=== PATIENT | male | born 1995 | race Asian ===

== ENCOUNTER 2017-06-07 21:55 | Emergency (ER) | payer SELFPAY ==
[~2017-06-07] VITALS: Ht 185.4 cm; Wt 75.0 kg
[2017-06-07 22:00] VITALS: BP 123/81; PULSE 77; RESP 16; O2SAT 98
--- NOTE | 2017-06-07 23:04 | ED.REPORT ---
HPI-Abd Pain M Under 40 Date of Service Jun 07, 2017 ED Provider: Darion Barber DO Pt is an otherwise healthy 22 year old male who presents to the ED with his mother complaining of intermittent abdominal pain onset 2 years ago. Today the pain returned and has now settled down to his right lower quadrant. He c/o associated intermittent chills. Pt reports that his pain radiates into his groin. He denies vomiting, diarrhea, constipation, discharge, fever, and weight loss. " Nursing Notes Stated Complaint: ABD PAIN Chief Complaint: Male Abdominal Pain Nursing Notes Reviewed: Yes Allergies: Coded Allergies: No Known Allergies (Unverified , 06/07/17) General Time Seen by MD: 23:03 Chief Complaint Abdominal pain Hx Obtained From: Patient Arrived By: Walk-in Sudden in Onset?: No Onset Occurred: More than a week ago... (>6 months) Symptom Duration: Intermittent Location: : Diffuse Quality: Painful Radiation: : Pelvis Severity: Current: Moderate Severity: Maximum: Moderate Recent Healthcare: No recent doctor visit, No recent hospitalization Similar Sx Previous: Yes Past Medical History Past Medical History None reported Past Surgical History None reported Smoking History Unknown if Ever Smoker Social History Other Social History: Good social support Ambulatory Status Independent Review of Systems Constitutional: Reports: Chills, Denies: Fever GI: Reports: Abdominal pain, Denies: Constipation, Diarrhea, Vomiting Male: Denies Penile discharge Complete sys rev & neg: except as marked. Endocrine: Denies: Weight loss Physical Exam Initial Vital Signs Vital Signs (First) Date Time Temp Pulse Resp B/P Pulse Ox O2 Delivery O2 Flow Rate FiO2 06/07/17 22:00 37.2 77 16 123/81 98 Room Air Initial VS: Reviewed Head / Eyes: Atraumatic, Normocephalic Neck: Supple, Full range of motion Extremities: Vascular intact, Neuro intact Skin: Warm, Dry, No cyanosis Neurologic: Alert, Oriented, Nonfocal Psychiatric: Mood/affect normal, Behavior normal General/Constitutional: Awake, Alert Respiratory / Chest: Atraumatic, Breath sounds NL, Breath sounds = bilat Cardiovascular: Heart rate NL, Regular rhythm, Heart sounds NL Abdomen: Atraumatic, Soft Moderate RLQ tenderness Back: Atraumatic, Full range of motion Interpretation & Diagnostics Lab Results Interpretation Result Diagram: 06/08/17 0000 9/15/17 0000 Test 06/08/17 00:00 06/08/17 00:10 White Blood Count 10.4th/mm3 (3.8-10.1) Red Blood Count 5.59mil/mm3 (4.40-5.80) Hemoglobin 16.5g/dL (13.8-17.2) Hematocrit 46.6% (41.0-50.0) Mean Corpuscular Volume 83.4fL (81-100) Mean Corpuscular Hemoglobin 29.5pg (27.0-35.0) Mean Corpuscular Hemoglobin Concent 35.4% (32.0-37.0) Red Cell Distribution Width 13.1% (12.3-15.4) Platelet Count 277bil/L (150-400) Neutrophils (%) (Auto) 58.5% (40-74) Lymphocytes (%) (Auto) 26.5% (14-46) Monocytes (%) (Auto) 7.8% (4-12) Eosinophils (%) (Auto) 6.4% (0-5) Basophils (%) (Auto) 0.5% (0-3) Sodium Level 141mEq/L (134-144) Potassium Level 3.8mEq/L (3.5-5.2) Chloride Level 101mEq/L (97-108) Carbon Dioxide Level 23mmol/L (18-29) Blood Urea Nitrogen 10mg/dL (6-20) Creatinine 0.88mg/dL (0.76-1.27) Estimat Glomerular Filtration Rate 113mL/min (>59) Glucose Level 91mg/dL (60-99) Calcium Level 9.6mg/dL (8.5-10.1) Total Bilirubin 1.1mg/dL (0.0-1.2) Aspartate Amino Transf (AST/SGOT) 16U/L (0-50) Alanine Aminotransferase (ALT/SGPT) 12U/L (0-44) Alkaline Phosphatase 80U/L (25-150) Total Protein 7.9g/dL (6.4-8.4) Albumin 4.7g/dL (3.4-5.0) Lipase 15U/L (13-60) Hold [place] Top Tube Received (Received) Urine Color Yellow (YELLOW) Urine Appearance Clear (CLEAR,HAZY) Urine pH 5.5 (5.0-8.0) Urine Specific [place] 1.005 (1.003-1.035) Urine Protein Negativemg/dL (NEG,TRACE) Urine Glucose (UA) Negativemg/dL (NEGATIVE) Urine Ketones Negativemg/dL (NEGATIVE) Urine Occult Blood Trace (NEGATIVE) Urine Nitrite Negative (NEGATIVE) Urine Bilirubin Negative (NEGATIVE) Urine Urobilinogen Normalmg/dL (NORMAL) Urine Leukocyte Esterase Negative (NEGATIVE) Urine RBC 0-2/hpf (0-2) Urine WBC 0-5/hpf (0-5) Urine Epithelial Cells Occasional/hpf (NONE-MOD) Urine Crystals None seen (NONE SEEN) Urine Bacteria None/hpf (NONE-FEW) Urine Hyaline Casts None/lpf (NONE) Urine Granular Casts None seen (NONE SEEN) Urine Waxy Casts None seen (NONE SEEN) Urine Red Blood Cell Casts None seen (NONE SEEN) Urine White Blood Cell Casts None seen (NONE SEEN) Urine Mucus None seen (None Seen) Urine Trichomonas None seen (NONE SEEN) Urine Yeast None (NONE SEEN) Urinalysis Comment None Urine Culture Reflexed Not indicated CT Abd / Pelvis Interpretation CONCLUSION: No evidence of appendicitis. Small mesenteric and ileocecal lymph nodes, query mesenteric adenitis. Several small bowel air-fluid levels, which is nonspecific and can be seen with enteritis or ileus. Mildly thickened urinary bladder, possibly due to under distention or cysititis. Transmitted to the ED on 02:06 by Esperanza Ivory M.D. Study type: Abdominal CT IV contrast Interpretation / Wet Read by: Interpret - Radiologist Re-Eval/Medical Decision Med Decision/Clinical Course CT shows mesenteric adenitis and enteritis. Normal appendix. Serious pathology ruled out. Will dc home with close follow up. Source of Hx: Old records Re-Evaluation/Progress : Time of Eval: 02:40 Re-Evaluation/Progress Note: Pt rechecked. Informed pt of CT results and plan for discharge. Pt is feeling better and would like to go home. Pt understands and agrees with plan for discharge. F/U instructions and RTER warnings given. All questions addressed. Counseled Regarding: Diagnosis, Lab results, Need for follow-up, When/why to return to ED Patient Discharge & Departure Primary Impression: Abdominal pain Abdominal location: unspecified location Qualified Code: R10.9 - Unspecified abdominal pain Additional Impression: Mesenteric adenitis Disposition: Home Discharge Condition All VS Reviewed: Yes Condition: Stable Patient Instructions: Acute Abdominal Pain (ED), Enteritis (ED), Mesenteric Adenitis (ED) Additional Instructions: The CT scan shows air-fluid levels in the small bowel and mesenteric lymph nodes consistent with enteritis and mesenteric lymphadenitis this is most likely a viral infection. The appendix is normal. This may be food borne illness be cautious with which she will consume. He may develop diarrhea within the next 12-24 hours. Take Naprosyn twice daily as directed for pain. Drink plenty of liquids. Set up a follow-up with her primary care physician. Set up a follow-up with the referral dishcloth folder. Since she has had this pain intermittently for 2 years I do recommend colonoscopy at least once. Return if any problems or any new or worrisome symptoms. Referrals: Beni Bledsoe MD [facility] Scribe Attestation Portions of this note were transcribed by Leilani Arevalo. I, Dr. Barber personally performed the history, physical exam and medical decision-making; I reviewed and confirmed the accuracy of the information in the transcribed note. Signed by : Garett Hernandez, 06/07/17. copies to: Beni Bledsoe MD; [facility] Darion Barber DO Jun 07, 2017 23:04 Leilani Fleming Jun 07, 2017 23:29
[2017-06-07] MEDS ORDERED: Iohexol 300 mg/mL 30 mL Inj PO ONE (23:25)
[2017-06-07] MEDS ORDERED: 0.9% Sodium Chloride 1,000 ML IV ONE (23:25)
[2017-06-08 00:16] LABS: BASOPHILS % (AUTO) 0.5 % (0-3); EOSINOPHILS % (AUTO) 6.4 % (0-5); MONOCYTES % (AUTO) 7.8 % (4-12); Mean Corpuscular Hemoglobin 29.5 pg (27.0-35.0); Mean Corpuscular Volume 83.4 fL (81-100); NEUTROPHILS % (AUTO) 58.5 % (40-74); Platelet Count 277 bil/L (150-400)
[2017-06-08 00:23] LABS: APPEARANCE,URINE CLEAR (CLEAR,HAZY); COLOR,URINE YELLOW (YELLOW); OCCULT BLOOD,URINE TRACE (NEGATIVE); PH,URINE 5.5 (5.0-8.0); UROBILINOGEN,URINE NORMAL (NORMAL)
[2017-06-08] MEDS ORDERED: Sodium Chloride LOK Flush 10 mL Syringe IVFLUSH SCH (00:30)
[2017-06-08 02:57] VITALS: BP 123/86; PULSE 66; RESP 17; O2SAT 97
--- NOTE | 2017-06-08 08:18 | DRSVH ---
PROCEDURE: CT ABDOMEN AND PELVIS WITH CONTRAST ([id number]) INDICATIONS: rlq pain TECHNIQUE: After the administration of oral and intravenous contrast, 5 mm thick sections acquired from the diap hragms to the symphysis. 5 mm thick coronal and sagittal reformats were performed. For radiation do se reduction, the following was used: automated exposure control, adjustment of mA and/or kV accordi ng to patient size. COMPARISON: None. FINDINGS: Image quality: Excellent. ABDOMEN: Lung bases: Lung bases are clear. Heart size is normal. Solid organs: Liver and spleen are normal in size and enhancement. Gallbladder is normal by CT. Bi liary system is non-dilated. Pancreas enhances normally. No adrenal nodules. Kidneys are normal in size and enhancement, without hydronephrosis. Peritoneum and bowel: Stomach, small bowel, and colon loops are normal in caliber and wall thickness . No free fluid or air. Nodes and vessels: Shotty right lower quadrant mesenteric lymph nodes. Aorta and inferior vena cava are normal in caliber. Miscellaneous: No ventral hernias. PELVIS: Genitourinary: Bladder wall thickness is normal. Miscellaneous: No inguinal hernias or adenopathy. Bones: No suspicious bony lesions. No vertebral body compression fractures. IMPRESSION: 1. Normal appendix. Prominent right lower quadrant mesenteric lymph nodes may represent mesenteric ad enitis. 2. There are no discrepancies with the preliminary report. Dictated by: Colin Tripathi M.D. on 06/08/2017 at 8:12 Approved by: Colin Tripathi M.D. on 06/08/2017 at 8:16
== END 2017-06-08 02:55 | disposition home or self-care (01) ==
LOC: SED 21:55
DX: I88.0 Nonspecific mesenteric lymphadenitis (principal); R68.83 Chills (without fever)
CPT/HCPCS: 36415; 74177; 80053; 81000; 83690; 85025; 87491; 87591; 96361; 96374; 99285; J1885; J7030; Q9967